=== PATIENT | female | born 1985 | race Caucasian/White ===

== ENCOUNTER 2022-11-15 05:46 | Inpatient (IN) | payer BC, OTHER ==
[2022-11-15] MEDS ORDERED: Dextrose 5%-Lactated Ringers 1,000 ML IV SCH (06:30)
[2022-11-15] MEDS ORDERED: Celecoxib 200 MG Cap PO ONE (06:30)
[2022-11-15] MEDS ORDERED: cefOXitin 2 GM in Sodium Chloride 0.9% 50 ML IV ONE ×2 (06:30→08:00)
[2022-11-15] MEDS ORDERED: Scopolamine 1.5 MG Transdermal Patch TRDERM ONE (06:30)
[2022-11-15 07:05] LABS: HEMATOCRIT 40.3 % (34.3-46.0); HEMOGLOBIN 13.3 g/dL (11.2-15.5); MEAN CORPUSCULAR HEMOGLOBIN 29.2 pg (31.6-35.5); MEAN CORPUSCULAR VOLUME 88.6 fL (81.4-99.0); RED BLOOD CELL COUNT 4.55 M/uL (3.77-5.24); WHITE BLOOD CELL COUNT,WBC 10.2 K/uL (3.2-11.0)
[2022-11-15 07:19] LABS: HEMOGLOBIN A1C 5.7 % (4.5-6.2)
[2022-11-15] MEDS ORDERED: Propofol 200 MG/20 ML SDV ONE (07:19)
[2022-11-15] MEDS ORDERED: Dexamethasone 4 MG/ML SDV ONE (07:19)
[2022-11-15] MEDS ORDERED: Rocuronium 50 MG/5 ML Vial ONE ×2 (07:19→10:09)
[2022-11-15] MEDS ORDERED: Ondansetron 4 MG/2 ML SDV ONE (07:19)
[2022-11-15] MEDS ORDERED: Succinylcholine 200 MG/10 ML MDV ONE (07:19)
[2022-11-15] MEDS ORDERED: Neostigmine Methylsulfate 1 MG/ML 5 ML Syringe ONE (07:19)
[2022-11-15] MEDS ORDERED: Glycopyrrolate 0.2 MG/ML 5 ML MDV ONE (07:19)
[2022-11-15 07:31] LABS: A/G RATIO 0.7 (1.2-2.2); ALANINE AMINOTRANSFERASE,ALT 47 U/L (12-78); ALBUMIN 3.2 g/dL (3.4-5.0); ALKALINE PHOSPHATASE 57 U/L (46-116); ANION GAP 10.7 mmol/L (5.0-14.0); ASPARTATE AMNIOTRANSFERASE,AST 24 U/L (15-37); BILIRUBIN TOTAL 0.2 mg/dL (0.2-1.0); BLOOD UREA NITROGEN,BUN 12 mg/dL (7-18); CALCIUM 9.1 mg/dL (8.5-10.1); CARBON DIOXIDE,CO2 29 mmol/L (21-32); CHLORIDE,CL 102 mmol/L (100-108); CREATININE 0.7 mg/dL (0.6-1.0); EST CRCL DRUG DOSING (CG) 109.08 mL/min; ESTIMATED GFR 116 mL/min (>60); GLUCOSE RANDOM 92 mg/dL (74-106); MAGNESIUM 1.8 mg/dL (1.8-2.4); PHOSPHORUS 4.3 mg/dL (2.5-4.9); POTASSIUM,K 3.7 mmol/L (3.6-5.2); PRO B-TYPE NATRIUR PEPT,BNPPRO 9 pg/mL (5-125); PROTEIN TOTAL,TP 7.6 g/dL (6.4-8.2); SODIUM,NA 138 mmol/L (140-148)
[2022-11-15] MEDS ORDERED: Ketamine 20 MG in Sodium Chloride 0.9% 19.8 ML IV SCH (08:00)
[2022-11-15] MEDS ORDERED: Ketamine 500 MG/5 ML MDV IV SCH (08:00)
[2022-11-15] MEDS ORDERED: Bupivacaine 0.5% 50 ML MDV ONE (08:27)
[2022-11-15] MEDS ORDERED: Lidocaine 1% with EPINEPHrine 1:100,000 50 ML MDV ONE (08:27)
[2022-11-15] MEDS ORDERED: cefOXitin 2 GM Vial ONE (08:27)
[2022-11-15] MEDS ORDERED: CHECK SCOPOLAMINE PATCH DAILY TOP SCH (09:00)
[2022-11-15] MEDS ORDERED: Lactated Ringers 1,000 ML ONE (11:03)
[2022-11-15] MEDS ORDERED: hydrOXYzine HCL 100 MG/2 ML SDV IM ONE (12:15)
[2022-11-15] MEDS ORDERED: Ondansetron 4 MG/2 ML SDV IVPUSH ONE (12:15)
[2022-11-15] MEDS: CHECK SCOPOLAMINE PATCH DAILY TOP SCH (13:15)
[2022-11-15] MEDS: HYDROmorphone 0.5 MG/0.5 ML Syringe IVPUSH PRN ×2 (13:37→22:00)
[2022-11-15] MEDS ORDERED: hydrOXYzine HCL 100 MG/2 ML SDV IM PRN (14:00)
[2022-11-15] MEDS ORDERED: diphenhydrAMINE 50 MG/ML SDV IVPUSH PRN (14:00)
[2022-11-15] MEDS ORDERED: Metoclopramide 10 MG/2 ML SDV IVPUSH PRN (14:00)
[2022-11-15] MEDS ORDERED: Ondansetron 4 MG/2 ML SDV IVPUSH PRN (14:00)
[2022-11-15] MEDS ORDERED: HYDROmorphone 1 MG/ML Syringe IV PRN (14:00)
[2022-11-15] MEDS ORDERED: Pantoprazole 40 MG Vial IVPUSH SCH (14:00)
[2022-11-15] MEDS ORDERED: Acetaminophen 500 MG Tab PO PRN (14:00)
[2022-11-15] MEDS: cefOXitin 2 GM in Sodium Chloride 0.9% 50 ML IV SCH ×2 (15:19→22:13)
[2022-11-15] MEDS: Labetalol 20 MG/4 ML Syringe IVPUSH PRN ×3 (15:46→16:00)
[2022-11-15] MEDS ORDERED: MVI, Adult with Vitamin K 10 ML, Thiamine 200 MG, Zinc/Copper/Manganese/Selenium 1 ML i... IV SCH ×4 (16:00)
[2022-11-15] MEDS: Acetaminophen 500 MG Tab PO SCH (16:10)
[2022-11-15] MEDS: Insulin Lispro 100 Unit/ML 3 ML KwikPen SUBCUT SCH ×2 (16:39→22:10)
[2022-11-15] MEDS: Losartan 25 MG Tab PO SCH (17:07)
[2022-11-15] MEDS: Heparin Sodium 5,000 Units/ML Vial SUBCUT SCH (17:08)
[2022-11-15] MEDS: traMADol 50 MG Tab PO PRN (17:28)
[2022-11-15] MEDS: Lactated Ringers 1,000 ML IV SCH (23:16)
[2022-11-16] MEDS: Cyclobenzaprine 10 MG Tab PO PRN ×3 (00:20→18:18)
[2022-11-16] MEDS: traMADol 50 MG Tab PO PRN (00:20)
[2022-11-16] MEDS: Acetaminophen 500 MG Tab PO SCH ×4 (00:21→23:30)
[2022-11-16] MEDS: cefOXitin 2 GM in Sodium Chloride 0.9% 50 ML IV SCH ×4 (02:22→19:22)
[2022-11-16] MEDS: HYDROmorphone 0.5 MG/0.5 ML Syringe IVPUSH PRN (03:49)
[2022-11-16] MEDS ORDERED: Iopamidol 612 MG/ML 30 ML SDV PO STA (03:50)
[2022-11-16] MEDS: Insulin Lispro 100 Unit/ML 3 ML KwikPen SUBCUT SCH ×4 (03:59→22:32)
[2022-11-16] MEDS: Heparin Sodium 5,000 Units/ML Vial SUBCUT SCH ×2 (05:45→17:01)
[2022-11-16] MEDS: Lactated Ringers 1,000 ML IV SCH (05:46)
[2022-11-16] MEDS ORDERED: Ondansetron 4 MG Tab.DIS PO PRN (07:37)
[2022-11-16] MEDS: Labetalol 20 MG/4 ML Syringe IVPUSH PRN (07:40)
[2022-11-16] MEDS ORDERED: Dextrose 5%-Lactated Ringers 1,000 ML IV SCH (07:45)
[2022-11-16] MEDS: SCOPOLAMINE PATCH CHECK TOP SCH (08:00)
[2022-11-16] MEDS: CHECK SCOPOLAMINE PATCH DAILY TOP SCH (08:00)
[2022-11-16] MEDS: Losartan 25 MG Tab PO SCH (08:00)
[2022-11-16] MEDS: Celecoxib 200 MG Cap PO SCH ×2 (08:01→20:43)
[2022-11-16] MEDS: Sertraline 50 MG Tab PO SCH (08:56)
[2022-11-16] MEDS ORDERED: Losartan 25 MG Tab PO SCH (09:00)
[2022-11-16] MEDS ORDERED: Lactated Ringers 1,000 ML IV SCH (09:45)
[2022-11-16] MEDS: hydrOXYzine HCl 25 MG Tab PO PRN ×2 (10:22→18:18)
[2022-11-16] MEDS: oxyCODONE 5 MG Tab PO PRN ×2 (13:28→22:38)
[2022-11-16] MEDS: MVI, Adult with Vitamin K 10 ML, Thiamine 200 MG, Zinc/Copper/Manganese/Selenium 1 ML i... IV SCH ×8 (14:35→15:58)
[2022-11-16] MEDS: Pantoprazole 40 MG Delayed-Release Granules 1 Packet PO SCH (17:01)
[2022-11-16] MEDS ORDERED: Sertraline 50 MG Tab PO SCH (21:00)
[2022-11-17] MEDS: hydrOXYzine HCl 25 MG Tab PO PRN ×2 (02:42→10:52)
[2022-11-17] MEDS: Cyclobenzaprine 10 MG Tab PO PRN ×2 (02:42→17:59)
[2022-11-17] MEDS: Insulin Lispro 100 Unit/ML 3 ML KwikPen SUBCUT SCH (03:38)
[2022-11-17] MEDS: Heparin Sodium 5,000 Units/ML Vial SUBCUT SCH ×2 (05:42→17:59)
[2022-11-17] MEDS: oxyCODONE 5 MG Tab PO PRN ×2 (05:48→18:41)
[2022-11-17] MEDS: Acetaminophen 500 MG Tab PO SCH ×2 (08:42→15:03)
[2022-11-17] MEDS: Sertraline 50 MG Tab PO SCH ×2 (08:43→08:47)
[2022-11-17] MEDS: Bisacodyl 5 MG Tab PO SCH ×2 (08:43→20:17)
[2022-11-17] MEDS: Hyoscyamine 0.125 MG Tab.SL SL SCH ×4 (08:43→20:17)
[2022-11-17] MEDS: Docusate Sodium 100 MG Cap PO SCH ×2 (08:43→20:17)
[2022-11-17] MEDS: Celecoxib 200 MG Cap PO SCH ×2 (08:43→20:17)
[2022-11-17] MEDS: Losartan 25 MG Tab PO SCH (08:45)
[2022-11-17] MEDS: SCOPOLAMINE PATCH CHECK TOP SCH (08:46)
[2022-11-17] MEDS: CHECK SCOPOLAMINE PATCH DAILY TOP SCH (08:46)
[2022-11-17] MEDS ORDERED: Cyanocobalamin (Vitamin B12) 1,000 MCG/ML SDV IM ONE (09:00)
[2022-11-17] MEDS: Labetalol 20 MG/4 ML Syringe IVPUSH PRN ×2 (10:52→11:15)
[2022-11-17] MEDS: Pantoprazole 40 MG Delayed-Release Granules 1 Packet PO SCH (16:23)
[2022-11-18] MEDS: Acetaminophen 500 MG Tab PO SCH ×2 (00:13→08:03)
[2022-11-18] MEDS: Hyoscyamine 0.125 MG Tab.SL SL SCH ×4 (00:14→12:27)
[2022-11-18] MEDS: oxyCODONE 5 MG Tab PO PRN ×2 (00:37→09:34)
[2022-11-18] MEDS: Heparin Sodium 5,000 Units/ML Vial SUBCUT SCH (05:06)
[2022-11-18] MEDS: Cyclobenzaprine 10 MG Tab PO PRN ×2 (05:13→14:50)
[2022-11-18] MEDS: Celecoxib 200 MG Cap PO SCH (08:03)
[2022-11-18] MEDS: Bisacodyl 5 MG Tab PO SCH (08:04)
[2022-11-18] MEDS: Docusate Sodium 100 MG Cap PO SCH (08:04)
[2022-11-18] MEDS: Sertraline 50 MG Tab PO SCH (08:05)
[2022-11-18] MEDS: CHECK SCOPOLAMINE PATCH DAILY TOP SCH (08:05)
[2022-11-18] MEDS: Losartan 25 MG Tab PO SCH (08:05)
== END 2022-11-18 15:20 | disposition home or self-care (01) | DRG 403 ==
LOC: JP.SDSSCHI 06:19 → JP.MS 11:30
PROVIDERS: ADMIT Surgery; ATTEND Surgery
PROC: 0DB64ZZ Excision of Stomach, Percutaneous Endoscopic Approach (ICD-10-PCS; principal; 2022-11-15)
PROC: 0D194ZB Bypass Duodenum to Ileum, Percutaneous Endoscopic Approach (ICD-10-PCS; 2022-11-15)
PROC: 0FB14ZX Excision of Right Lobe Liver, Percutaneous Endoscopic Approach, Diagnostic (ICD-10-PCS; 2022-11-15)
PROC: 0BQT4ZZ Repair Diaphragm, Percutaneous Endoscopic Approach (ICD-10-PCS; 2022-11-15)
DX: E66.01 Morbid (severe) obesity due to excess calories (principal); K44.9 Diaphragmatic hernia without obstruction or gangrene; R16.0 Hepatomegaly, not elsewhere classified; E88.81 Metabolic syndrome and other insulin resistance; K72.90 Hepatic failure, unspecified without coma; K76.0 Fatty (change of) liver, not elsewhere classified; G47.33 Obstructive sleep apnea (adult) (pediatric); G47.36 Sleep related hypoventilation in conditions classified elsewhere; F33.41 Major depressive disorder, recurrent, in partial remission; I10 Essential (primary) hypertension; E78.1 Pure hyperglyceridemia; Z20.822 Contact with and (suspected) exposure to COVID-19; E28.2 Polycystic ovarian syndrome; E78.5 Hyperlipidemia, unspecified; Z68.43 Body mass index [BMI] 50.0-59.9, adult; Z99.89 Dependence on other enabling machines and devices; Z90.49 Acquired absence of other specified parts of digestive tract; Z98.890 Other specified postprocedural states; Z88.8 Allergy status to other drugs, medicaments and biological substances; Z87.891 Personal history of nicotine dependence
CPT/HCPCS: 36415; 74240; 74240-26; 80053; 81025; 82947; 83036; 83735; 83880; 84100; 85027; 86850; 86900; 86901; 93005; A9270-GY; C9113; J0171; J0330; J0694; J1100; J1170; J1644; J2405; J2704; J2710; J2765; J2795; J3410; J3411; J3420; J3490; J7120; J7121; Q0162; Q9967